=== PATIENT | female | born 1960 | race Asian ===

== ENCOUNTER 2023-11-28 13:57 | Emergency (ER) | payer OTHER, SELFPAY ==
[2023-11-28] VITALS (12 sets, daily range): BP systolic 134–189; BP diastolic 69–93; PULSE 60–90; RESP 16; TEMP 36.8; O2SAT 91–98; BMI 22.8
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
[2023-11-28] MEDS: ACETAMINOPHEN 325 MG TABLET 650 MG PO (14:25)
[2023-11-28] MEDS: IBUPROFEN 400 MG TABLET PO (14:26)
[2023-11-28] MEDS: OXYCODONE IR 5 MG TABLET PO (16:09)
[2023-11-28] MEDS: ONDANSETRON 4 MG ODT PO (16:09)
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
[2023-11-28] MEDS: HYDROMORPHONE 0.5 MG INJ IV (18:51)
[2023-11-28] MEDS: ONDANSETRON 4 MG/2 ML INJ IV (18:51)
[2023-11-28] MEDS: LIDOCAINE 1% 20 ML INJ (19:15)
--- NOTE | 2023-11-28 19:15 | PC.NURSE ---
Dr Grande in to reduce pt's fracture, fx reduce and splinted per Dr Grande
--- NOTE | 2023-11-28 19:23 | DI.RAD.S_ITS ---
PROCEDURE: XR WRIST LT 2V INDICATIONS: post reduction TECHNIQUE: 2 views of the wrist were acquired. COMPARISON: [facility], CR, XR WRIST LT MIN 3V, 11/28/2023, 14:21. FINDINGS: Bones: Interval splinting/casting of known comminuted intra-articular fracture of the distal left radius. Post reduction alignment appears unchanged. Other osseous structures appear stable. Soft tissues: No suspicious soft tissue calcifications. IMPRESSION: Status post interval splinting/casting of known comminuted intra-articular fracture of the distal left radius in unchanged alignment. Dictated by: Sen Foster M.D. on 11/28/2023 at 20:05 Approved by: Sen Foster M.D. on 11/28/2023 at 20:06
--- NOTE | 2023-11-28 19:26 | DI.CT.S_ITS ---
PROCEDURE: CT UE LT WO CON INDICATIONS: wrist and olecranon fracture TECHNIQUE: Noncontrast 1-1.5 mm axial sections were acquired through the 4, with coronal and sagittal reformats. COMPARISON: None. FINDINGS: Image quality: Excellent. Bones: Comminuted and displaced fracture of the olecranon with intra-articular extension. There is displacement of the fragments by approximately 1.3 centimeters. Question of a nondisplaced radial head fracture (). Comminuted displaced distal radial fracture with intra-articular extension. Soft tissues: Subcutaneous stranding around the elbow and wrist. IMPRESSION: Comminuted and displaced fractures of the olecranon and distal radial metaphysis. Question of a nondisplaced radial head fracture. Dictated by: Vance Gaxiola M.D. on 11/28/2023 at 21:11 Approved by: Vance Gaxiola M.D. on 11/28/2023 at 21:15
[2023-11-28] MEDS: ONDANSETRON 4 MG ODT PREPACK 1 BOTTLE MISC (19:45)
[2023-11-28] MEDS: HYDROCODONE/ACET 5/325 PREPACK 1 BOTTLE MISC (19:45)
[2023-11-28] MEDS: KETOROLAC 30 MG/ML VIAL 15 MG IV (20:09)
[2023-11-28] MEDS: METOCLOPRAMIDE 10 MG/2 ML INJ IV (20:09)
== END 2023-11-28 21:20 | disposition home or self-care (01) ==
PROVIDERS: Emergency Provider Emergency Medicine
DX: S52.022A Displaced fracture of olecranon process without intraarticular extension of left ulna, initial encounter for closed fracture (principal); S52.592A Other fractures of lower end of left radius, initial encounter for closed fracture; S09.90XA Unspecified injury of head, initial encounter; V19.9XXA Pedal cyclist (driver) (passenger) injured in unspecified traffic accident, initial encounter
CPT/HCPCS: 25605; 73080; 73100; 73110; 73200; 73502; 96374; 96375; 99284; J1170; J1885; J2405; J2765